=== PATIENT | male | born 2000 | race Caucasian/White ===

== ENCOUNTER 2021-09-21 20:00 | Emergency (ER) | payer OTHER ==
[~2021-09-21] VITALS: Ht 175.3 cm; Wt 70.3 kg
[~2021-09-21 20:00] MED LIST: CEPH125SU PO; LORA10 PO; LORTAB 10 MG-3473 ML PO; MONT4; SULTRIEL PO
== END 2021-09-21 22:42 | disposition home or self-care (01) ==
LOC: ER 20:00
DX: R07.9 Chest pain, unspecified (principal); M62.838 Other muscle spasm; Z79.899 Other long term (current) drug therapy
CPT/HCPCS: 71046; 93005; 93010

== ENCOUNTER 2024-05-22 15:59 | Emergency (ER) | payer OTHER ==
[~2024-05-22] VITALS: Ht 175.3 cm; Wt 68.0 kg
[2024-05-22 16:29] VITALS: BP 133/83
[2024-05-22] MEDS ORDERED: Fluorescein Sod 1MG Opth Strips RIGHTEYE ONE (17:10)
[2024-05-22] MEDS ORDERED: Proparacaine 0.5% Opth Soln 15 ML BTL RIGHTEYE ONE (17:10)
[2024-05-22] MEDS ORDERED: Erythromycin 0.5% Opth Oint 1 gm RIGHTEYE ONE (17:30)
== END 2024-05-22 17:55 | disposition home or self-care (01) ==
LOC: ER 15:59
DX: T15.01XA Foreign body in cornea, right eye, initial encounter (principal); Z88.9 Allergy status to unspecified drugs, medicaments and biological substances; Z79.891 Long term (current) use of opiate analgesic
CPT/HCPCS: 65222; 99283-25; A9270; A9270-GY